=== PATIENT | female | born 1945 | race Caucasian/White ===

== ENCOUNTER 2016-07-17 10:57 | Emergency (ER) | payer MEDICARE, OTHER ==
[2016-07-17] MEDS ORDERED: ACETAMINOPHEN 325 MG TABLET PO ONE (13:00)
[2016-07-17] MEDS ORDERED: IBUPROFEN 600 MG TABLET PO ONE (13:00)
[2016-07-17] MEDS: ACETAMINOPHEN 325 MG TABLET PO STA (13:02)
[2016-07-17] MEDS: IBUPROFEN 600 MG TABLET PO STA (13:02)
== END 2016-07-17 14:00 | disposition home or self-care (01) ==
DX: S82.832A Other fracture of upper and lower end of left fibula, initial encounter for closed fracture (principal); W01.0XXA Fall on same level from slipping, tripping and stumbling without subsequent striking against object, initial encounter; Y92.009 Unspecified place in unspecified non-institutional (private) residence as the place of occurrence of the external cause
CPT/HCPCS: 73610; 99283; A9270

== ENCOUNTER 2016-07-25 12:00 | Outpatient (CLI) | payer MEDICARE | END 2016-07-25 12:01 | disposition home or self-care (01) | DX: S82.65XA Nondisplaced fracture of lateral malleolus of left fibula, initial encounter for closed fracture (principal) ==